=== PATIENT | female | born 1965 | race Caucasian/White ===

== ENCOUNTER 2018-10-10 05:50 | Emergency (ER) | payer OTHER ==
[~2018-10-10] VITALS: Ht 165.1 cm; Wt 122.5 kg
[~2018-10-10 05:50] MED LIST: TRAM1TAB98 PO
[2018-10-10] MEDS ORDERED: VASOTEC5 MG PO (06:01)
[2018-10-10] MEDS ORDERED: FORTAMET500 MG PO (06:01)
== END 2018-10-10 13:15 | disposition home or self-care (01) ==
LOC: ER 05:50
DX: K80.10 Calculus of gallbladder with chronic cholecystitis without obstruction (principal)